=== PATIENT | female | born 1995 | race Two or more races ===

== ENCOUNTER 2021-05-25 16:13 | Inpatient (IN) | payer OTHER ==
[~2021-05-25] VITALS: Ht 154.9 cm; Wt 64.9 kg
[2021-05-25] MEDS ORDERED: PRENATAL TABLE1 EAC1 PO (16:21)
== END 2021-05-27 18:55 | disposition home or self-care (01) | DRG 807 ==
LOC: LDR 16:13 → OB/GYN 05-26 16:32
PROVIDERS: ADMIT Obstetrics & Gynecology; ATTEND Obstetrics & Gynecology
PROC: 10E0XZZ Delivery of Products of Conception, External Approach (ICD-10-PCS; principal; 2021-05-25)
PROC: 0HQ9XZZ Repair Perineum Skin, External Approach (ICD-10-PCS; 2021-05-25)
PROC: 4A1HXFZ Monitoring of Products of Conception, Cardiac Rhythm, External Approach (ICD-10-PCS; 2021-05-25)
DX: O42.02 Full-term premature rupture of membranes, onset of labor within 24 hours of rupture (principal); O70.0 First degree perineal laceration during delivery; Z37.0 Single live birth; Z3A.38 38 weeks gestation of pregnancy